=== PATIENT | male | born 1960 | race Caucasian/White ===

== ENCOUNTER 2019-05-03 10:10 | Observation (INO) ==
[2019-05-03] MEDS ORDERED: Naloxone 0.4 MG/ML INJ IVP PRN (13:15)
[2019-05-03] MEDS ORDERED: Ondansetron 4 MG/2 ML VIAL IVP PRN (13:15)
[2019-05-03 14:21] LABS: Prothrombin Time 11.6 Seconds (9.4-12.1)
[2019-05-03 14:33] LABS: Basophils % 0.4 %; Eosinophils # 0.4 K/mcL (0.0-0.6); Eosinophils % 4.8 %; Hematocrit 47.6 % (37.5-50.1); Hemoglobin 16.2 g/dL (12.9-16.9); Immature Granulocytes % 0.3 % (0-4); Lymphocytes # 3.7 K/mcL (0.6-4.6); Lymphocytes % 51.4 %; Mean Corpuscular Hemoglobin 31.3 pg (28.0-33.3); Mean Corpuscular Volume 92.1 fL (83.0-100.0); Mean Platelet Volume 11.3 fL (9.4-12.4); Monocytes # 0.5 K/mcL (0.0-1.3); Monocytes % 6.6 %; Neutrophils # 2.7 K/mcL (1.6-8.9); Platelet Count 208 K/mcL (140-400); Red Blood Count 5.17 M/mcL (4.19-5.50); Red Cell Distribution Width 13.4 % (11.5-14.5); Segmented Neutrophils % 36.5 %; White Blood Count 7.3 K/mcL (4.3-11.1)
[2019-05-03 14:38] LABS: BUN/Creatinine Ratio 19 (6-26); Blood Urea Nitrogen 11 mg/dL (6-20); Calcium 8.8 mg/dL (8.6-10.3); Carbon Dioxide 28 mEq/L (23-29); Chloride 108 mEq/L (98-107); Glucose 94 mg/dL (70-105); Osmolality,Calculated 289 (280-300); Sodium 140 mEq/L (136-145); eGFR For African Americans > 60 (> 60); eGFR For Non-African Americans > 60 (> 60)
[2019-05-03] MEDS ORDERED: Isovue-370 500 ML BOTTLE IVP ONE (14:44)
[2019-05-03 16:05] LABS: C-Reactive Protein < 5 mg/L (Less than 10)
[2019-05-03] MEDS: *HR* OxyCODONE/APAP 10/325 TABLET PO PRN (20:43)
[2019-05-03] MEDS: clonazePAM 0.5 MG TABLET PO PRN (20:43)
[2019-05-03] MEDS: *HR* Heparin 5,000 UNIT/ML VIAL SQ SCH (20:45)
[2019-05-04] MEDS: *HR* Heparin 5,000 UNIT/ML VIAL SQ SCH ×2 (00:41→16:02)
[2019-05-04 05:13] LABS: Chol/HDL Ratio 5.3 (0-4.9)
[2019-05-04 08:02] VITALS: BP 180/87
[2019-05-04] MEDS: *HR* OxyCODONE/APAP 10/325 TABLET PO PRN ×2 (08:56→16:00)
[2019-05-04] MEDS: clonazePAM 0.5 MG TABLET PO PRN (08:56)
[2019-05-04] MEDS ORDERED: Aspirin Enteric Coated 81 MG Tablet PO SCH (09:00)
[2019-05-04] MEDS ORDERED: Lisinopril 20 MG TABLET PO SCH (09:00)
[2019-05-04] MEDS ORDERED: Regadenoson 0.4 MG/5 ML SYRINGE IVP ONE (11:26)
[2019-05-04] MEDS ORDERED: Nitroglycerin 0.4 MG TAB.SUBL SL PRN (15:58)
[2019-05-05] MEDS ORDERED: amLODIPine 5 MG TABLET PO SCH (09:00)
[2019-05-05] MEDS ORDERED: Isosorbide MONOnitrate (24 HR) 30 MG TAB.ER.24H PO SCH (09:00)
== END 2019-05-04 17:42 | disposition home or self-care (01) ==
LOC: 3BNU → SUATTDRO 12:28
PROVIDERS: ADMIT Internal Medicine; ATTEND General Practice

== ENCOUNTER 2019-11-09 15:22 | Observation (INO) ==
[2019-11-09] MEDS ORDERED: Naloxone 0.4 MG/ML INJ IVP PRN (17:34)
[2019-11-09] MEDS ORDERED: Ondansetron 4 MG/2 ML VIAL IVP PRN (17:34)
[2019-11-09] MEDS ORDERED: Acetaminophen 325 MG TABLET PO PRN (17:55)
[2019-11-09] MEDS ORDERED: *HR* Heparin 5,000 UNIT/ML VIAL SQ SCH (18:00)
[2019-11-09] MEDS: levoFLOXacin 750 MG/150 ML 750 MG/150 ML BAG IVPB SCH (18:24)
[2019-11-09] MEDS ORDERED: *HR* OxyCODONE/APAP 5/325 TABLET PO ONE (21:43)
[2019-11-10 04:17] LABS: Basophils % 0.1 %; Eosinophils # 0.2 K/mcL (0.0-0.6); Eosinophils % 2.5 %; Hematocrit 44.5 % (37.5-50.1); Hemoglobin 14.4 g/dL (12.9-16.9); Immature Granulocytes % 0.1 % (0-4); Lymphocytes # 3.1 K/mcL (0.6-4.6); Lymphocytes % 37.3 %; Mean Corpuscular HGB Conc 32.4 g/dL (31.6-35.5); Mean Corpuscular Hemoglobin 30.6 pg (28.0-33.3); Mean Corpuscular Volume 94.7 fL (83.0-100.0); Mean Platelet Volume 10.5 fL (9.4-12.4); Monocytes # 0.6 K/mcL (0.0-1.3); Monocytes % 7.7 %; Neutrophils # 4.4 K/mcL (1.6-8.9); Platelet Count 179 K/mcL (140-400); Red Cell Distribution Width 12.6 % (11.5-14.5); Segmented Neutrophils % 52.3 %; White Blood Count 8.3 K/mcL (4.3-11.1)
[2019-11-10 04:26] LABS: BUN/Creatinine Ratio 16 (6-26); Blood Urea Nitrogen 8 mg/dL (6-20); Calcium 8.4 mg/dL (8.6-10.3); Carbon Dioxide 26 mEq/L (23-29); Chloride 106 mEq/L (98-107); Glucose 104 mg/dL (70-105); Magnesium 1.8 mg/dL (1.6-2.6); Osmolality,Calculated 285 (280-300); Potassium 3.5 mEq/L (3.5-5.1); Sodium 138 mEq/L (136-145); eGFR For African Americans > 60 (> 60); eGFR For Non-African Americans > 60 (> 60)
[2019-11-10] MEDS: *HR* Enoxaparin 40 MG/0.4 ML SYRINGE SQ SCH (05:57)
[2019-11-10] MEDS ORDERED: clonazePAM 0.5 MG TABLET PO PRN (08:33)
[2019-11-10] MEDS ORDERED: Nitroglycerin 0.4 MG TAB.SUBL SL PRN (08:33)
[2019-11-10] MEDS: *HR* OxyCODONE/APAP 10/325 TABLET PO PRN ×2 (10:09→18:51)
[2019-11-10] MEDS: Furosemide 20 MG/2 ML VIAL IVP SCH ×2 (10:10→20:46)
[2019-11-10] MEDS: Isosorbide MONOnitrate (24 HR) 30 MG TAB.ER.24H PO SCH (10:10)
[2019-11-10] MEDS: levoFLOXacin 750 MG/150 ML 750 MG/150 ML BAG IVPB SCH (18:52)
[2019-11-11] MEDS: *HR* OxyCODONE/APAP 10/325 TABLET PO PRN (05:28)
[2019-11-11] MEDS: *HR* Enoxaparin 40 MG/0.4 ML SYRINGE SQ SCH (05:28)
[2019-11-11] MEDS ORDERED: Aspirin Enteric Coated 81 MG Tablet PO SCH (09:00)
[2019-11-11] MEDS: Furosemide 20 MG/2 ML VIAL IVP SCH ×2 (09:05→09:08)
[2019-11-11] MEDS: Isosorbide MONOnitrate (24 HR) 30 MG TAB.ER.24H PO SCH (09:05)
[2019-11-11 11:06] VITALS: BP 184/101
[2019-11-11] MEDS ORDERED: lisinopriL 20 MG TABLET PO SCH (11:15)
[2019-11-11] MEDS ORDERED: levoFLOXacin 750 MG TABLET PO SCH (18:00)
== END 2019-11-11 12:13 | disposition home or self-care (01) ==
LOC: 2NENU → SUATTDRO 17:17 → 3ANU 11-10 21:37
PROVIDERS: ADMIT Family Medicine; ATTEND Internal Medicine

== ENCOUNTER 2020-01-18 13:10 | Observation (INO) ==
[2020-01-18 14:00] LABS: Basophils % 0.3 %; Eosinophils # 0.3 K/mcL (0.0-0.6); Eosinophils % 3.5 %; Hematocrit 48.8 % (37.5-50.1); Hemoglobin 15.8 g/dL (12.9-16.9); Immature Granulocytes % 0.3 % (0-4); Lymphocytes # 3.4 K/mcL (0.6-4.6); Lymphocytes % 45.4 %; Mean Corpuscular HGB Conc 32.4 g/dL (31.6-35.5); Mean Corpuscular Hemoglobin 30.9 pg (28.0-33.3); Mean Corpuscular Volume 95.5 fL (83.0-100.0); Mean Platelet Volume 10.6 fL (9.4-12.4); Monocytes # 0.5 K/mcL (0.0-1.3); Monocytes % 6.1 %; Neutrophils # 3.3 K/mcL (1.6-8.9); Platelet Count 222 K/mcL (140-400); Red Blood Count 5.11 M/mcL (4.19-5.50); Red Cell Distribution Width 13.2 % (11.5-14.5); Segmented Neutrophils % 44.4 %; White Blood Count 7.4 K/mcL (4.3-11.1)
[2020-01-18 14:12] LABS: Amylase 23 Units/L (29-103); Lipase 17 Units/L (11-82)
[2020-01-18 14:18] LABS: BUN/Creatinine Ratio 23 (6-26); Blood Urea Nitrogen 14 mg/dL (6-20); Calcium 8.8 mg/dL (8.6-10.3); Carbon Dioxide 26 mEq/L (23-29); Chloride 105 mEq/L (98-107); Glucose 102 mg/dL (70-105); Osmolality,Calculated 287 (280-300); Potassium 3.7 mEq/L (3.5-5.1); Sodium 138 mEq/L (136-145); Troponin I < 0.03 ng/mL (< 0.04); eGFR For African Americans > 60 (> 60); eGFR For Non-African Americans > 60 (> 60)
[2020-01-18 14:27] LABS: INR 1.1; Prothrombin Time 12.1 Seconds (9.4-12.1)
[2020-01-18 14:30] LABS: Activated Partial Thrombo Time 32.5 Seconds (26.0-36.0)
[2020-01-18] MEDS ORDERED: Naloxone 0.4 MG/ML INJ IVP PRN (17:15)
[2020-01-18] MEDS ORDERED: clonazePAM 0.5 MG TABLET PO PRN (17:59)
[2020-01-18] MEDS: *HR* OxyCODONE/APAP 10/325 TABLET PO PRN (18:18)
[2020-01-18] MEDS: *HR* Heparin 5,000 UNIT/ML VIAL SQ SCH (18:19)
[2020-01-19 00:31] LABS: Adenovirus Not Detected (Not Detect); Bordetella Pertussis Not Detected (Not Detect); Chlamydophila pneumoniae Not Detected (Not Detect); Coronavirus 229E Not Detected (Not Detect); Coronavirus HKU1 Not Detected (Not Detect); Coronavirus NL63 Not Detected (Not Detect); Coronavirus OC43 Not Detected (Not Detect); Human Metapneumovirus Not Detected (Not Detect); Human Rhinovirus/Enterovirus Not Detected (Not Detect); Influenza A Subtype 2009 H1 Not Detected (Not Detect); Influenza B Not Detected (Not Detect); Mycoplasma pneumoniae Not Detected (Not Detect); Parainfluenza Virus 1 Not Detected (Not Detect); Parainfluenza Virus 2 Not Detected (Not Detect); Parainfluenza Virus 3 Not Detected (Not Detect); Parainfluenza Virus 4 Not Detected (Not Detect); Respiratory Syncytial Virus Not Detected (Not Detect)
[2020-01-19 00:32] LABS: SARS-CoV-2 Not Detected (Not Detect)
[2020-01-19 02:38] LABS: Hematocrit 49.2 % (37.5-50.1); Hemoglobin 15.6 g/dL (12.9-16.9); Mean Corpuscular HGB Conc 31.7 g/dL (31.6-35.5); Mean Corpuscular Volume 94.6 fL (83.0-100.0); Mean Platelet Volume 10.8 fL (9.4-12.4); Platelet Count 217 K/mcL (140-400); Red Cell Distribution Width 13.2 % (11.5-14.5); White Blood Count 7.4 K/mcL (4.3-11.1)
[2020-01-19 02:56] LABS: BUN/Creatinine Ratio 21 (6-26); Blood Urea Nitrogen 13 mg/dL (6-20); Calcium 9.2 mg/dL (8.6-10.3); Carbon Dioxide 25 mEq/L (23-29); Chloride 105 mEq/L (98-107); Glucose 122 mg/dL (70-105); Osmolality,Calculated 289 (280-300); Potassium 3.5 mEq/L (3.5-5.1); Sodium 139 mEq/L (136-145); eGFR For African Americans > 60 (> 60); eGFR For Non-African Americans > 60 (> 60)
[2020-01-19] MEDS: *HR* Heparin 5,000 UNIT/ML VIAL SQ SCH ×2 (07:00→13:03)
[2020-01-19] MEDS: Aspirin Enteric Coated 81 MG Tablet PO SCH (08:27)
[2020-01-19] MEDS: lisinopriL 20 MG TABLET PO SCH (08:27)
[2020-01-19 10:00] LABS: Thyroid Stimulating Hormone 0.829 mcIU/mL (0.340-5.600)
[2020-01-19] MEDS ORDERED: Regadenoson 0.4 MG/5 ML SYRINGE IVP ONE (10:34)
[2020-01-19] MEDS ORDERED: ISOVUE-370 200 ML INFUS..BTL ONE (11:25)
[2020-01-19] MEDS ORDERED: 0.9 % Sodium Chloride 2,000 ML ONE (11:25)
[2020-01-19] MEDS ORDERED: Heparin 1,000 UNITS/500 mL 500 ML ONE (11:25)
[2020-01-19] MEDS ORDERED: *HR* Heparin 10,000 UNIT/10 ML VIAL ONE (11:25)
[2020-01-19] MEDS ORDERED: Nitroglycerin 1,000 MCG/10 ML VIAL IV ONE (11:26)
[2020-01-19] MEDS: Isosorbide MONOnitrate (24 HR) 60 MG TAB.ER.24H PO SCH (11:46)
[2020-01-19] MEDS ORDERED: *HR* Midazolam HCl 2 MG/2 ML VIAL ONE (11:49)
[2020-01-19] MEDS ORDERED: *HR* FentaNYL (PF) 100 MCG/2 ML VIAL ONE (11:49)
[2020-01-19] MEDS ORDERED: Tirofiban 12.5 MG/250ML 12.5 MG/250 ML BAG ONE (12:16)
[2020-01-19] MEDS ORDERED: *HR* Ticagrelor 90 MG TABLET ONE (12:36)
[2020-01-19] MEDS ORDERED: Tirofiban 12.5 MG/250ML 12.5 MG/250 ML BAG IVC SCH (12:45)
[2020-01-19] MEDS: *HR* OxyCODONE/APAP 10/325 TABLET PO PRN ×2 (14:19→22:16)
[2020-01-19] MEDS ORDERED: *HR* LORazepam 2 MG/ML VIAL IVP ONE (15:32)
[2020-01-19] MEDS: *HR* Ticagrelor 90 MG TABLET PO SCH (22:09)
[2020-01-20] MEDS: *HR* Heparin 5,000 UNIT/ML VIAL SQ SCH (06:15)
[2020-01-20] MEDS: *HR* OxyCODONE/APAP 10/325 TABLET PO PRN (06:18)
[2020-01-20 06:51] VITALS: BP 148/91
[2020-01-20] MEDS: lisinopriL 20 MG TABLET PO SCH (08:09)
[2020-01-20] MEDS: Aspirin Enteric Coated 81 MG Tablet PO SCH (08:09)
[2020-01-20] MEDS: Isosorbide MONOnitrate (24 HR) 60 MG TAB.ER.24H PO SCH (08:09)
[2020-01-20] MEDS: *HR* Ticagrelor 90 MG TABLET PO SCH (08:09)
== END 2020-01-20 10:44 | disposition home or self-care (01) ==
LOC: 3BNU 13:10 → EMEROOARM 13:10 → 3BNU 15:50
PROVIDERS: ADMIT Internal Medicine; ATTEND Internal Medicine

== ENCOUNTER 2020-08-17 12:05 | Observation (INO) ==
[2020-08-17] MEDS ORDERED: Nitroglycerin 0.4 MG TAB.SUBL SL PRN (16:10)
[2020-08-17] MEDS ORDERED: MOM Conc 10 ML UD.LIQ PO PRN (16:11)
[2020-08-17] MEDS ORDERED: Ondansetron ODT 4 MG TAB.RAPDIS SL PRN (16:11)
[2020-08-17] MEDS ORDERED: Naloxone 0.4 MG/ML INJ IVP PRN (16:11)
[2020-08-17] MEDS: *HR* OxyCODONE/APAP 10/325 TABLET PO PRN (17:12)
[2020-08-17] MEDS: clonazePAM 0.5 MG TABLET PO SCH (20:41)
[2020-08-17] MEDS: *HR* Ticagrelor 90 MG TABLET PO SCH (20:41)
[2020-08-17] MEDS ORDERED: lisinopriL 20 MG TABLET PO SCH (21:00)
[2020-08-18 04:32] LABS: Hematocrit 43.9 % (37.5-50.1); Hemoglobin 14.2 g/dL (12.9-16.9); Mean Corpuscular HGB Conc 32.3 g/dL (31.6-35.5); Mean Corpuscular Hemoglobin 29.2 pg (28.0-33.3); Mean Corpuscular Volume 90.3 fL (83.0-100.0); Mean Platelet Volume 10.6 fL (9.4-12.4); Platelet Count 215 K/mcL (140-400); Red Blood Count 4.86 M/mcL (4.19-5.50); Red Cell Distribution Width 13.5 % (11.5-14.5); White Blood Count 6.8 K/mcL (4.3-11.1)
[2020-08-18 04:51] LABS: Alanine Aminotransferase 15 Units/L (7-52); Albumin 3.8 g/dL (3.5-5.7); Albumin/Globulin Ratio 1.5 (1.1-2.2); Alkaline Phosphatase 71 Units/L (34-104); Aspartate Amino Transferase 15 Units/L (13-39); BUN/Creatinine Ratio 13 (6-26); Bilirubin,Total 0.3 mg/dL (0.3-1.0); Blood Urea Nitrogen 8 mg/dL (6-20); Carbon Dioxide 26 mEq/L (23-29); Chloride 106 mEq/L (98-107); Chol/HDL Ratio 5.8 (0-4.9); Cholesterol 181 mg/dL (< 200); Globulin 2.5 g/dL (2.4-3.5); Glucose 107 mg/dL (70-105); HDL Cholesterol 31 mg/dL (40-59); LDL Cholesterol,Calculated 111 mg/dL (< 100); Osmolality,Calculated 287 (280-300); Sodium 139 mEq/L (136-145); Total Protein 6.3 g/dL (6.4-8.9); Triglycerides 194 mg/dL (< 150); eGFR For African Americans > 60 (> 60); eGFR For Non-African Americans > 60 (> 60)
[2020-08-18] MEDS: clonazePAM 0.5 MG TABLET PO SCH (08:33)
[2020-08-18] MEDS: *HR* Ticagrelor 90 MG TABLET PO SCH (08:33)
[2020-08-18] MEDS ORDERED: Isosorbide MONOnitrate (24 HR) 60 MG TAB.ER.24H PO SCH (09:00)
[2020-08-18] MEDS ORDERED: Aspirin 81 MG TAB.CHEW PO SCH (09:00)
[2020-08-18] MEDS: *HR* OxyCODONE/APAP 10/325 TABLET PO PRN (09:05)
[2020-08-18] MEDS ORDERED: Isosorbide MONOnitrate (24 HR) 30 MG TAB.ER.24H PO ONE (10:13)
[2020-08-18] MEDS ORDERED: Perflutren Lipid Microsphere 1.3 ML in 0.9 % Sodium Chloride 8.7 ML IVP PRN (10:34)
[2020-08-18 11:10] VITALS: BP 154/90
[2020-08-18] MEDS ORDERED: *HR* Enoxaparin 40 MG/0.4 ML SYRINGE SQ SCH (18:00)
[2020-08-19] MEDS ORDERED: Isosorbide MONOnitrate (24 HR) 30 MG TAB.ER.24H PO SCH (09:00)
== END 2020-08-18 14:29 | disposition left against medical advice (07) ==
LOC: 3BNU → SUATTDRO 15:08
PROVIDERS: ADMIT Internal Medicine; ATTEND Registered Nurse